=== PATIENT | female | born 1995 | race Caucasian/White ===

== ENCOUNTER 2016-09-01 22:46 | Emergency (ER) | payer OTHER ==
[2016-09-02] MEDS ORDERED: ONDANSETRON ODT 4 MG TAB ONE (02:52)
[2016-09-02] MEDS ORDERED: Ibuprofen 400 MG TAB ONE (03:19)
== END 2016-09-02 03:42 | disposition home or self-care (01) ==
LOC: ER 22:46
CPT/HCPCS: 70450; 72125